=== PATIENT | male | born 1960 | race Caucasian/White ===

== ENCOUNTER 2017-08-25 07:12 | Emergency (ER) | payer OTHER ==
[~2017-08-25] VITALS: Ht 157.5 cm; Wt 39.0 kg
[~2017-08-25 07:12] MED LIST: CARAFATE 1GM1000 MG PO; EFFEXOR XR150 MG PO; EFFEXOR-XR37.5 MG PO; FLUTICASON0.05 MG/Ac NASB; FOLIC ACID 1 MG PO; IBUPROFEN600 M1 PO; LOMOTIL 2.5-0.1 EACH PO; LOTRISONE CREAM15 G1 TOP; MOTRIN 600 MG600 MG PO; NEXIUM 40MG40 MG PO; PREDNISONE50 MG PO; PRILOSEC 20MG C20 MG PO; PROTONIX 40MG T40 MG PO; SINGULAIR10 MG PO; TRAMADOL50 MG PO; TRAZODONE HCL100 MG PO; TRAZODONE HCL50 MG PO; Theragran Vitamins PO; VITAMIN B1100 MG PO; ZOFRAN ODT4 M1 SL
[2017-08-25 07:20] VITALS: BP 115/75
== END 2017-08-25 08:19 | disposition admitted as inpatient to this hospital (09) ==
LOC: ERH 07:12
DX: B35.3 Tinea pedis (principal)